=== PATIENT | female | born 1995 | race Caucasian/White ===

== ENCOUNTER 2019-07-15 16:26 | Emergency (ER) | payer BC, SELFPAY ==
--- NOTE | 2019-07-15 16:31 | XR_ITS ---
WS: [id number] XR nasal bones min 3V [id number] REASON FOR EXAM: injury FINDINGS: The left nasal bone shows a fracture with no depression. No gross displacement is seen. Spi ne at the tibia is normal. The paranasal sinuses show no air-fluid levels. The visualized facial bones and orbits were normal. XR/XR nasal bones min 3V [id number] IMPRESSION: Nondisplaced left nasal bone fracture.
[2019-07-15 16:33] VITALS: BP 145/91; PULSE 77; RESP 16; TEMP 36.4; O2SAT 100; BMI 28.3
[2019-07-15 17:19] VITALS: BP 120/78; PULSE 77; RESP 16; TEMP 36.6; O2SAT 99
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
[2019-07-15 18:35] VITALS: BP 107/74; PULSE 81; RESP 16; TEMP 36.6; O2SAT 97
--- NOTE | 2019-07-15 19:10 | PC.NURSE ---
Reviewed assessment and agree with it.
--- NOTE | 2019-07-18 09:34 | DCPLANNER ---
manager database was asked to schedule a follow up appointment for patient with ENT. manager database called the ENT clinic, spoke with Stacie, a follow up appointment was scheduled for Monday, July 22, 2019 at 2:[address] Amezcua. Clinic will call patient with appointment information.
--- NOTE | 2019-08-05 14:15 | DCPLANNER ---
Patient did not attend appointment scheduled for 07.22.19 with ENT.
== END 2019-07-15 19:10 | disposition home or self-care (01) ==
PROVIDERS: Emergency Provider Physician Assistant; Family Provider Family Medicine
DX: S02.2XXA Fracture of nasal bones, initial encounter for closed fracture (principal); F17.200 Nicotine dependence, unspecified, uncomplicated; W50.0XXA Accidental hit or strike by another person, initial encounter
CPT/HCPCS: 70160; 99281; 99282

== ENCOUNTER → 2020-05-06 10:41 | Outpatient (BNVA) | payer BC, SELFPAY | PROVIDERS: Family Provider Family Medicine; Visit Provider Nurse Practitioner Family | DX: J06.9 Acute upper respiratory infection, unspecified (principal) | CPT/HCPCS: 87635 ==

== ENCOUNTER 2020-06-23 13:01 | Outpatient (CLI) | payer MEDICAID, SELFPAY ==
--- NOTE | 2020-06-23 13:07 | US_ITS ---
WS: [id number] ULTRASOUND EARLY TECHNIQUE: Transabdominal sonography of the pelvis was performed. Followed by transvaginal sonography to better evaluate the uterus and ovaries. CLINICAL INFORMATION: SUPERVISION NORMAL LMP: 04/30/2020 Beta hCG: Unknown. COMPARISON: None. FINDINGS: UTERUS AND GESTATIONAL SAC Intrauterine gestations: Estimated gestational age: 6w1d Yolk sac: 0.5 cm. [place] rump length (CRL): 0.5 cm. heart motion: 112 BPM. Subchorionic hemorrhage: None. OVARIES Right ovary: Normal. Left ovary: Normal. FREE FLUID Trace US/US OB <=14 wk fetus w transvag IMPRESSION: 1. Single live intrauterine with cardiac activity. 2. Estimated gestational age; 6w1d 3. Normal adnexa. 4. Trace free fluid in the cul-de-sac.
== END 2020-06-23 13:02 | disposition home or self-care (01) ==
PROVIDERS: PCP Family Medicine; Visit Provider Family Medicine
DX: Z34.91 Encounter for supervision of normal pregnancy, unspecified, first trimester (principal); Z3A.01 Less than 8 weeks gestation of pregnancy
CPT/HCPCS: 76801; 76817

== ENCOUNTER 2020-07-02 16:39 | Emergency (ER) | payer MEDICAID, SELFPAY ==
[2020-07-02 16:52] VITALS: BP 141/80; PULSE 99; RESP 16; TEMP 36.8; O2SAT 98; BMI 29.6
--- NOTE | 2020-07-02 17:27 | ED_ITS ---
HPI - General: Chief complaint: Vaginal Bleeding Stated complaint: 7&1/2 WKS PREG, HEAVY SPOTTING Time Seen by Provider: 07/02/20 16:56 History of Present Illness: HPI Narrative: 24-year-old female presents complaining of cramping and a little bit of occasional bloody spotting. Its not continuous she has not had to wear a pad. She is approximately 7-1/2 weeks she usually sees Dr. Zambrano. Patient is G2, P1. She denies any fever sweats chills nausea vomiting or diarrhea. No vaginal discharge dysuria urgency or frequency. She does have a little bit of cramping. MD Complaint: vaginal bleeding Onset (ago): hour(s) Pain Consistency: intermittent Location: pelvis Severity: mild Quality: Cramping Radiation: pelvis Relieving factors: none Exacerbating factors: none Vaginal discharge: none Vaginal bleeding: light Date of Last Menstrual Period: 04/30/20 OB History - Current : no complications OB History - Previous Pregnancies: no complications care: followed by OB Associated symptoms: Reports vaginal bleeding; Deny abdominal pain, dyspareunia, dysuria, headache(s), malaise, nausea, rash, seizures, short of breath, syncope, vaginal discharge, visual changes, vomiting or weakness Related Data: : 2 Review of Systems Const: Denies: malaise ENMT: Denies: throat pain, ear or mastoid pain, nasal discharge or nasal congestion Card: Denies: syncope Resp: Denies: dyspnea, productive cough or non-productive cough GI: Denies: abdominal pain, nausea or vomiting : Denies: dysuria, vaginal discharge or dyspareunia Skin/Breast: Denies: rash or pruritus Neuro: Denies: headache(s) PFSH ED PFSH: Social History Smoking and tobacco status: current every day smoker Female Reproductive History: Date of last menstrual period: 04/30/20 : 2 Physical Exam Const: COMMON NORMALS: no acute distress GENERAL APPEARANCE: cooperative and comfortable ORIENTATION/CONSCIOUSNESS: Yes awake, Yes oriented to person, Yes oriented to place and Yes oriented to time HENMT: COMMON NORMALS: normocephalic, atraumatic and hearing grossly normal bilaterally HEAD & SCALP: normocephalic and atraumatic Neck/C-Spine: COMMON NORMALS: no JVD Resp: COMMON NORMALS: normal respiratory effort, No retractions, No use of accessory muscles and clear to auscultation bilaterally AUSCULTATION: clear to auscultation bilaterally Cardio: COMMON NORMALS: no JVD, regular rate, regular rhythm and No murmurs present (Cardio) RATE: regular rate RHYTHM: regular rhythm GI: COMMON NORMALS: Soft to palpation and No hepatosplenomegaly present AUSCULTATION: Yes normoactive bowel sounds PALPATION: Yes Soft to palpation, No Tenderness to palpation present (GI), No Guarding due to palpation present (GI) and Yes No hepatosplenomegaly present : SPECULUM EXAM - VAGINA: Yes vaginal bleeding OB/EXTERNAL & SPECULUM: vaginal bleeding Extremity: COMMON NORMALS: normal to inspection, capillary refill normal, no clubbing, cyanosis or edema, no calf tenderness and no pedal edema Neuro: SENSORIUM/ORIENTATION: Yes oriented to person, Yes oriented to place and Yes oriented to time Skin: COMMON NORMALS: no rashes or lesions noted GENERAL SKIN EXAM: no rashes or lesions noted Course Vital Signs: Vital signs: Vital Signs Temperature 98.3 F 07/02/20 16:52 Pulse Rate 98 07/02/20 18:48 Respiratory Rate 16 07/02/20 18:48 Blood Pressure 125/72 07/02/20 18:48 Pulse Oximetry 94 07/02/20 18:48 MDM - OB/Uterine Contractions MDM Narrative: Medical decision making narrative: Beta-hCG is adequate. On pe lvic exam I do not see any blood at the os or in the vaginal canal. Have her follow-up within the next few days if she has any worsening of symptoms return. She had no cervical motion tenderness or real pelvic discomfort. Suspect she may have had a small subchorionic bleed. Lab Data: Attestation: I reviewed the patient's lab results. Labs: Lab Results 07/02/20 07/02/20 07/02/20 Range/Units 17:17 17:31 17:31 WBC 13.0 H (4.0-10.0) 10^3/ uL RBC 4.79 (4.1-5.3) 10^6/u L Hgb 14.0 (11.5-15.3) g/dL Hct 41.5 (37.0-47.0) % MCV 86.6 (81-99) fL MCH 29.2 (28.0-34.0) pg MCHC 33.7 (30.0-36.0) g/dL RDW 12.0 L (12.1-15.1) % Plt Count 291 (130-400) 10^3/c mm MPV 10.1 (7.4-10.4) fL Neut % (Auto) 75.2 % Lymph % (Auto) 18.9 % [place] % (Auto) 4.6 % Eos % (Auto) 0.4 % Baso % (Auto) 0.4 % Neut # (Auto) 9.75 H (1.8-7.7) 10^3/u L Lymph # (Auto) 2.5 (0.8-4.8) 10^3/u L [place] # (Auto) 0.6 (0.2-0.9) 10^3/u L Eos # (Auto) 0.1 (0.0-0.8) 10^3/u L Baso # (Auto) 0.1 (0.0-0.1) 10^3/u L Nucleated RBC % (a uto) 0 % Nucleated RBCs # 0.0 /100WBC Sodium (136-145) mmol/L Potassium (3.5-5.1) mmol/L Chloride (98-107) mmol/L Carbon Dioxide (22-29) mmol/L Anion Gap (5-19) BUN (6-20) mg/dL Creatinine (0.5-0.9) mg/dL GFR Calculation (90-130) mL/min Glucose (65-115) mg/dL Calculated Osmolal ity (285-295) mOsm/k g Calcium (8.5-10.5) mg/dL Ser , Anastacia i-Qnt mIU/mL Urine Color Yellow (Yellow) Urine Appearance Clear (CLEAR) Urine pH 5 (5-7) Ur Specific Gravit y 1.015 (1.005-1.030) Urine Protein Neg (Negative) Urine Glucose (UA) Norm (Normal) Urine Ketones Negative (Negative) Urine Blood Trace H (Negative) Urine Nitrate Negative (Negative) Urine Bilirubin Neg (Negative) Urine Urobilinogen Norm (Negative) mg/dL Ur Leukocyte Oliva ase Negative (Negative) Urine RBC 0-4 H (0-2) /hpf Urine WBC None (0-5) /hpf Ur Squamous Epith Cells 0-4 H (0-5) /hpf Amorphous Sediment Not Reportable Urine Bacteria Trace (NONE) /hpf Blood Type A Positive Rho(D) Type Positive 07/02/20 Range/Units 17:31 WBC (4.0-10.0) 10^3/ uL RBC (4.1-5.3) 10^6/u L Hgb (11.5-15.3) g/dL Hct (37.0-47.0) % MCV (81-99) fL MCH (28.0-34.0) pg MCHC (30.0-36.0) g/dL RDW (12.1-15.1) % Plt Count (130-400) 10^3/c mm MPV (7.4-10.4) fL Neut % (Auto) % Lymph % (Auto) % [place] % (Auto) % Eos % (Auto) % Baso % (Auto) % Neut # (Auto) (1.8-7.7) 10^3/u L Lymph # (Auto) (0.8-4.8) 10^3/u L [place] # (Auto) (0.2-0.9) 10^3/u L Eos # (Auto) (0.0-0.8) 10^3/u L Baso # (Auto) (0.0-0.1) 10^3/u L Nucleated RBC % (a uto) % Nucleated RBCs # /100WBC Sodium 138 (136-145) mmol/L Potassium 3.9 (3.5-5.1) mmol/L Chloride 105 (98-107) mmol/L Carbon Dioxide 20 L (22-29) mmol/L Anion Gap 16.9 (5-19) BUN 5 L (6-20) mg/dL Creatinine 0.4 L (0.5-0.9) mg/dL GFR Calculation 199.6 H (90-130) mL/min Glucose 75 (65-115) mg/dL Calculated Osmolal ity 282 L (285-295) mOsm/k g Calcium 9.3 (8.5-10.5) mg/dL Ser , Anastacia i-Qnt 554657.00 mIU/mL Urine Color (Yellow) Urine Appearance (CLEAR) Urine pH (5-7) Ur Specific Gravit y (1.005-1.030) Urine Protein (Negative) Urine Glucose (UA) (Normal) Urine Ketones (Negative) Urine Blood (Negative) Urine Nitrate (Negative) Urine Bilirubin (Negative) Urine Urobilinogen (Negative) mg/dL Ur Leukocyte Oliva ase (Negative) Urine RBC (0-2) /hpf Urine WBC (0-5) /hpf Ur Squamous Epith Cells (0-5) /hpf Amorphous Sediment Urine Bacteria (NONE) /hpf Blood Type Rho(D) Type Discharge Plan Discharge Patient Disposition: Home Clinical Impression: Vaginal bleeding Condition: Stable Discharge Orders: Discharge ED (Routine); Ordered 07/02/20 Ordered By: Zain Cobb Referrals: Mainor Zambrano MD [Primary Care Provider] - Discharge Diet: Usual diet Activity Restrictions/Additional Instructions: Return if you have further problems. Or worsening symptoms. Coding Level of Care Code ED Inletter for Crissyg Fwd Exam Comprehensive
[2020-07-02 17:57] LABS: Basophils # 0.1 10^3/uL (0.0-0.1); Basophils % 0.4 %; Eosinophils # 0.1 10^3/uL (0.0-0.8); Eosinophils % 0.4 %; Hematocrit 41.5 % (37.0-47.0); Lymphocytes # 2.5 10^3/uL (0.8-4.8); Lymphocytes % 18.9 %; Mean Corpuscular HGB Conc 33.7 g/dL (30.0-36.0); Mean Corpuscular Hemoglobin 29.2 pg (28.0-34.0); Mean Corpuscular Volume 86.6 fL (81-99); Mean Platelet Volume 10.1 fL (7.4-10.4); Monocytes # 0.6 10^3/uL (0.2-0.9); Monocytes % 4.6 %; Neutrophils # 9.75 10^3/uL (1.8-7.7); Neutrophils % 75.2 %; Nucleated Red Blood Cells % 0 %; Platelet Count 291 10^3/cmm (130-400); Red Blood Count 4.79 10^6/uL (4.1-5.3)
[2020-07-02 18:13] LABS: Add Urine Microscopic? YES; Bilirubin Urine Neg (Negative); Blood Urine Trace (Negative); Glucose Urine UA Norm (Normal); Ketones Urine Negative (Negative); Leukocyte Esterase Urine Negative (Negative); Nitrate Urine Negative (Negative); Protein Urine Neg (Negative); Specific Gravity, Urine 1.015 (1.005-1.030); Urine Appearance Clear (CLEAR); Urine Color Yellow (Yellow); Urobilinogen Urine Norm (Negative); pH Urine 5 (5-7)
[2020-07-02 18:14] LABS: Add Urine Culture? No; Bacteria Urine TRACE /hpf; RBC Urine 0-4 /hpf (0-2); Squamous Epithelial Cell Urine 0-4 /hpf (0-5)
[2020-07-02 18:33] LABS: Anion Gap 16.9 (5-19); Blood Urea Nitrogen 5 mg/dL (6-20); Calcium 9.3 mg/dL (8.5-10.5); Carbon Dioxide 20 mmol/L (22-29); Chloride 105 mmol/L (98-107); Glomerular Filtration Rate 199.6 mL/min (90-130); Glucose 75 mg/dL (65-115); Osmolality Calculated 282 mOsm/kg (285-295); Potassium 3.9 mmol/L (3.5-5.1); Sodium 138 mmol/L (136-145)
[2020-07-02 18:48] VITALS: BP 125/72; PULSE 98; RESP 16; O2SAT 94
== END 2020-07-02 18:48 | disposition home or self-care (01) ==
PROVIDERS: Emergency Provider Family Medicine; PCP Family Medicine
DX: N93.9 Abnormal uterine and vaginal bleeding, unspecified (principal); F17.210 Nicotine dependence, cigarettes, uncomplicated
CPT/HCPCS: 12345; 51701; 80048; 81001; 84702; 85025; 86900; 87210; 87491; 87591; 87661; 99282; 99283; E0352

== ENCOUNTER 2020-09-22 13:53 | Outpatient (CLI) | payer MEDICAID, SELFPAY ==
--- NOTE | 2020-09-22 14:03 | US_ITS ---
WS: [id number] OBSTETRICAL ULTRASOUND COMPLETE HISTORY: SUPERVISION, NORMAL COMPARISON: 06/23/2020 Single intrauterine gestation in variable presentation. Cervix is Closed and normal length. Cervical length is 3.9 cm. Normal amount of amniotic fluid surrounds the fetus. Placenta: Anterior, no previa or abruption. Tip ends 2.7 cm above the internal cervical os. Placenta grade 0 Heart: 171 BPM. Four chambers are identified. Outflow tracts are poorly visualized but no abnormality is identified. Poor visualization due to body habitus. Anatomy: Intracranial structures and spine are normal. kidneys, stomach and urinary bladd er are unremarkable. Abdominal wall, three-vessel cord and cord insertion site are normal. 4 extremities are present. profile: Limited by hands in front of the face. Gender: Female. measurements: BPD = 4.4 cm = 19w2d HC = 16.4 cm = 19w1d AC = 15.4 cm = 20w4d FL = 3.3 cm = 20w3d EFW: 347 g. Biometry is internally concordant. AGA by ultrasound: 19w6d NAVID by ultrasound: 02/10/2021 US/US OB >= 14 weeks fetus [id number] IMPRESSION: 1. Single intrauterine gestation of 19w6d with an NAVID of 02/10/2021. Appropria te growth since the first trimester ultrasound. 2. Unremarkable screening survey of anatomy.
== END 2020-09-22 13:54 | disposition home or self-care (01) ==
LOC: RAD 13:56
PROVIDERS: PCP Family Medicine; Visit Provider Family Medicine
DX: Z34.92 Encounter for supervision of normal pregnancy, unspecified, second trimester (principal); Z3A.19 19 weeks gestation of pregnancy
CPT/HCPCS: 76805

== ENCOUNTER 2021-02-05 20:26 | Outpatient (CLI) | payer OTHER, MEDICAID, SELFPAY ==
[2021-02-05] VITALS (9 sets, daily range): BP systolic 121–140; BP diastolic 69–92; PULSE 82–115; RESP 16; TEMP 36.9; BMI 33.6
[2021-02-05 21:35] LABS: Basophils % 0.4 %; Eosinophils # 0.1 10^3/uL (0.0-0.8); Eosinophils % 0.7 %; Hematocrit 36.6 % (37.0-47.0); Hemoglobin 12.5 g/dL (11.5-15.3); Lymphocytes # 2.6 10^3/uL (0.8-4.8); Lymphocytes % 23.1 %; Mean Corpuscular HGB Conc 34.2 g/dL (30.0-36.0); Mean Platelet Volume 10.7 fL (7.4-10.4); Monocytes # 0.5 10^3/uL (0.2-0.9); Monocytes % 4.5 %; Neutrophils # 7.89 10^3/uL (1.8-7.7); Neutrophils % 70.1 %; Nucleated Red Blood Cells % 0 %; Platelet Count 206 10^3/cmm (130-400); Red Blood Count 4.16 10^6/uL (4.1-5.3); Red Cell Distribution Width 13.7 % (12.1-15.1); White Blood Count 11.3 10^3/uL (4.0-10.0)
[2021-02-05 21:37] LABS: Add Urine Microscopic? YES; Bilirubin Urine Neg (Negative); Blood Urine Neg (Negative); Glucose Urine UA Norm (Normal); Ketones Urine Negative (Negative); Leukocyte Esterase Urine 2+ (Negative); Nitrate Urine Negative (Negative); Protein Urine Neg (Negative); Urine Color Yellow (Yellow); Urobilinogen Urine Norm (Negative); pH Urine 6.5 (5-7)
[2021-02-05 21:55] LABS: Alanine Aminotransferase 6 U/L (0-33); Albumin Level 3.4 g/dL (3.5-5.2); Alkaline Phosphatase 655 IU/L (35-105); Anion Gap 19.8 (5-19); Aspartate Amino Transferase 16 U/L (0-32); Blood Urea Nitrogen 6 mg/dL (6-20); Calcium 8.8 mg/dL (8.5-10.5); Carbon Dioxide 17 mmol/L (22-29); Chloride 106 mmol/L (98-107); Globulin 2.9 g/dL (1.3-4.6); Glomerular Filtration Rate 197.8 mL/min (90-130); Glucose 86 mg/dL (65-115); Osmolality Calculated 285 mOsm/kg (285-295); Potassium 3.8 mmol/L (3.5-5.1); Sodium 139 mmol/L (136-145); Total Bilirubin 0.2 mg/dL (0.15-1.2); Total Protein 6.3 g/dL (6.6-8.7); Uric Acid 4.9 mg/dL (2.4-5.7)
[2021-02-05 21:56] LABS: Urine Creatinine 72 mg/dL (28-217)
[2021-02-05 21:57] LABS: UPRO/UCREAT Ratio 0.35 mg/mg CR; Urine Protein Random 25 mg/dL
[2021-02-05 22:00] LABS: RBC Urine 0-4 /hpf (0-2)
[2021-02-05 22:01] LABS: Add Urine Culture? No; Bacteria Urine 2+ /hpf; Squamous Epithelial Cell Urine 25-40 /hpf (0-5); WBC Urine 15-25 /hpf (0-5)
== END 2021-02-05 22:40 | disposition home or self-care (01) ==
LOC: OPOB 20:37 → OBGYN 22:21
PROVIDERS: PCP Family Medicine; Visit Provider Family Medicine
DX: O16.9 Unspecified maternal hypertension, unspecified trimester (principal); Z3A.00 Weeks of gestation of pregnancy not specified
CPT/HCPCS: 36415; 59025; 80053; 81001; 82570; 84156; 84550; 85025; 99211

== ENCOUNTER 2021-02-07 08:08 | Outpatient (CLI) | payer OTHER, MEDICAID, SELFPAY ==
[2021-02-07 09:13] LABS: Total Volume, Urine 2900 mL
[2021-02-07 09:30] LABS: Urine Total Protein 9.4 mg/24HR (0-150); Urine Total Protein 24 Hour 272.6 mg/dL (0-150)
== END 2021-02-07 08:09 | disposition home or self-care (01) ==
PROVIDERS: PCP Family Medicine; Visit Provider Family Medicine
DX: Z01.89 Encounter for other specified special examinations (principal)
CPT/HCPCS: 84156

== ENCOUNTER 2021-02-08 05:05 | Inpatient (IN) | payer OTHER, MEDICAID, SELFPAY ==
[2021-02-08] VITALS (24 sets, daily range): BP systolic 112–136; BP diastolic 64–86; PULSE 15–98; RESP 12–18; TEMP 36.3–37; O2SAT 97–99; BMI 33.8
[2021-02-08] MEDS: lactated ringers 1,000 ML 125 ML IV (05:31)
[2021-02-08 05:36] LABS: Basophils # 0.1 10^3/uL (0.0-0.1); Basophils % 0.5 %; Eosinophils # 0.1 10^3/uL (0.0-0.8); Eosinophils % 0.6 %; Hematocrit 36.8 % (37.0-47.0); Hemoglobin 12.5 g/dL (11.5-15.3); Lymphocytes # 3.4 10^3/uL (0.8-4.8); Mean Corpuscular Hemoglobin 29.9 pg (28.0-34.0); Mean Platelet Volume 11.1 fL (7.4-10.4); Monocytes # 0.6 10^3/uL (0.2-0.9); Monocytes % 4.4 %; Neutrophils # 8.37 10^3/uL (1.8-7.7); Neutrophils % 66.2 %; Nucleated Red Blood Cells % 0 %; Platelet Count 208 10^3/cmm (130-400); Red Blood Count 4.18 10^6/uL (4.1-5.3); Red Cell Distribution Width 13.7 % (12.1-15.1); White Blood Count 12.7 10^3/uL (4.0-10.0)
[2021-02-08 06:04] LABS: Amphetamines Screen Urine Negative (Negative); Barbiturates Screen Urine Negative (Negative); Benzodiazepines Screen Urine Negative (Negative); Cocaine Screen Urine Negative (Negative); Opiate Screen Urine Negative (Negative); PCP Screen Urine Negative (Negative); THC Screen Urine Negative (Negative)
[2021-02-08] MEDS: lactated ringers 1,000 ML 999 ML IV (06:40)
--- NOTE | 2021-02-08 06:44 | P.ANESASSM_ITS ---
Documented by User: Jolynn Lopez CRNA 02/08/21 06:46 Pre-Anesthetic Assessment Pre-Anesthetic Assessment: Height/Weight: Height 1.57 m Weight 83.915 kg Resp 15 02/08/21 05:11 Preop Diagnosis: previous c/s Proposed Procedure: Operation Date: 02/08/21 07:00 Proposed Procedures p Section Repeat(Not Applicable) - Mainor Zambrano MD Last intake: Intake Last Liquid Date 02/08/21 Last Liquid Time 00:00 Last Solid Date 02/07/21 Last Solid Time 19:00 Social: Social History: Tobacco Exam: Pre-Anes Outpt Exam: alert and oriented x 3 Airway: Submandibular: WNL Cervical ROM: WNL MP: 2 Dentition: Full History/ROS: No significant history except as noted Pulmonary: Pulmonary: None reported CV/HEM: CV/HEM: None reported : : None reported Hepatic: Hepatic: None reported GI: GI: None reported Metabolic: Metabolic: None reported Musc/skel: Musc/skel: None reported Neuropsych: Neuropsych: None reported Anesthetic Plan: ASA status: 2 Anesthesia: Eval. for regional block Other: SAB Risk of > 500 ml blood loss (7ml/kg in children): No Meds/Allergies Current Medications: Current Medications Generic Name Dose Route Start Last Admin Trade Name Freq PRN Reason Stop Dose Admin Lactated Ringer's 1,000 mls @ 125 m ls/hr 02/08/21 05:15 02/08/21 05:31 Lactated Ringers IV 125 mls/hr .Q8H CLAUDIA Administration Lactated Ringer's 1,000 mls @ 999 m ls/hr 02/08/21 06:32 02/08/21 06:40 Lactated Ringers IV 02/08/21 07:32 999 mls/hr .Q1H1M ONE Administration PFSH Anesthesia PFSH: Surgical History (Updated 02/08/21 @ 06:57 by Mainor Zambrano MD) Previous section Social History Smoking and tobacco status: current every day smoker Female Reproductive History: Date of last menstrual period: 04/30/20 Gravid a: 2 Data Anesthesia CBC & Chem 7: 02/08/21 05:20 Other Labs: Laboratory Results - last 48 hr 02/08/21 02/08/21 05:19 05:20 WBC 12.7 H RBC 4.18 Hgb 12.5 Hct 36.8 L MCV 88.0 MCH 29.9 MCHC 34.0 RDW 13.7 Plt Count 208 MPV 11.1 H Neut % (Auto) 66.2 Lymph % (Auto) 27.0 Keith % (Auto) 4.4 Eos % (Auto) 0.6 Baso % (Auto) 0.5 Neut # (Auto) 8.37 H Lymph # (Auto) 3.4 Keith # (Auto) 0.6 Eos # (Auto) 0.1 Baso # (Auto) 0.1 Nucleated RBC % (auto) 0 Nucleated RBCs # 0.0 Urine Opiates Screen Negative Ur Barbiturates Screen Negative Ur Phencyclidine Scrn Negative Ur Amphetamines Screen Negative U Benzodiazepines Scrn Negative Urine Cocaine Screen Negative U Marijuana (THC) Screen Negative Cardiac Studies: No Data to Display Documented by User: Owen Enriquez 02/08/21 11:58 PFSH Anesthesia PFSH: Surgical History (Updated 02/08/21 @ 06:57 by Mainor Zambrano MD) Previous section Social History Smoking and tobacco status: current every day smoker Data Anesthesia CBC & Chem 7: 02/08/21 05:20 Cardiac Studies: No Data to Display
[2021-02-08] MEDS: metoclopramide 5 mg/mL SDV 2 mL 10 MG IVP (06:45)
[2021-02-08] MEDS: famotidine 20 mg/2 mL INJ IVP (06:45)
[2021-02-08] MEDS: citric acid-sodium citrate 30 mL UDC PO (06:46)
--- NOTE | 2021-02-08 06:55 | P.HP_ITS ---
Providers/Chief Complaint Admitting Physician: Mainor Zambrano MD Primary Care Provider: Mainor Zambrano MD Chief Complaint: c section History of Present Illness Irene Hurtado is a 25 year old at 39.0 weeks gestation by 6-week ultrasound inconsistent with LMP. 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 The patient presents for a scheduled repeat low-transverse section. The patient is feeling well at this time. She denies any chest pains, shortness of breath, nausea, vomiting, fever, leakage of fluid, vaginal bleeding. She feels well overall at this time. She last ate prior to midnight last night. Medications/Allergies Home Medications Medication Instructions Recorded Confirmed Last Taken Type 1 tab PO DAILY 02/05/21 02/05/21 Unknown History iron 325 mg PO DAILY 02/05/21 02/05/21 02/05/21 12:00 History Allergies Allergy/AdvReac Type Severity Reaction Status Date / Time Penicillins Allergy Unknown Verified 02/05/21 21:32 PFSH Acute PFSH: Surgical History (Updated 02/08/21 @ 06:57 by Manior Zambrano MD) Previous section Social History Smoking and tobacco status: current every day smoker Female Reproductive History: Date of last menstrual period: 04/30/20 Gravi da: 2 Vitals/I&O/Wt Last Vital Signs Pulse 15 L 02/08/21 05:11 Resp 15 02/08/21 05:11 02/07/21 02/07/21 02/08/21 14:59 22:59 06:59 Intake Total 50 / 50 Balance 50 / 50 Weight last 48 hrs Weight 185 lb Physical Exam Narrative: EXAM NARRATIVE: General: Alert and oriented x3 Eyes: Pupils equal round and reactive to light and accommodation Mouth: Mucous membranes moist, pharynx non-erythematous Cardiac: Regular rate and rhythm without murmurs Lungs: Clear to auscultation bilaterally without wheezes, crackles or rhonchi Abdomen: Soft, non-tender, fundus consistent with gestational age Extremities: Trace edema in the bilateral lower extremities Data : 02/08/21 05:20 A&P Additional A&P Information The patient is doing well at this time and we will plan to proceed with a repeat low transverse section. heart tones are in the mid 130s with moderate variability and good accelerations with a category 1 tracing. Contractions are every 1 to 3 minutes. All questions were answered. Attestations Medical Necessity Statement*: The patient will be here for greater than 2 midnights due to routine intrapartum and management of section. Coding Level of Care Code Acute Enterprise Mobility Architect for Dania Bell
--- NOTE | 2021-02-08 09:09 | PM.OP ---
Operative Report Date of procedure: February 08, 2021 Pre-op Diagnosis: previous c/s Pre-op Diagnosis: 1. Intrauterine at 39.0 weeks gestation 2. THC in initial urine in first trimester 3. Rubella nonimmune Post-op Diagnosis: 1. Intrauterine status post repeat low transverse section at 39.0 weeks gestation 2. THC in initial urine in first trimester 3. Rubella nonimmune 4. Delivery of healthy infant male weighing 7 pounds 13 ounces with Apgars of 8 and 9 Procedure Done: Repeat low-transverse section. Specimens removed/disposition: Placenta discarded Pathology: none sent Surgeon: Mainor Zambrano Anesthesia: Other (Spinal) Estimated blood loss (mL): 650 Complications: None Condition: stable Disposition: floor Brief History: Irene Hurtado is a 25 year old G2 now P2 status post repeat low transverse section at 39.0 weeks gestation by 6-week ultrasound inconsistent with LMP. 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 The patient presents for a scheduled repeat low-transverse section. The patient is feeling well at this time. She denies any chest pains, shortness of breath, nausea, vomiting, fever, leakage of fluid, vaginal bleeding. She feels well overall at this time. She last ate prior to midnight last night. Procedure: After informed consent was obtained, the patient was taken to the operating room and the patient was prepped and draped in a normal sterile fashion in the dorsal supine position. A spinal epidural was placed and adequate anesthesia was confirmed. At 7:21 AM on 02/08/2021, a Pfannenstiel skin incision was made and carried through to the underlying layer of fascia using a scalpel. The fascial incision was then extended laterally using curved Mayos. The fascia was then grasped with Kevin clamps and the underlying rectus muscles were dissected off taking care to avoid injury to the underlying tissues. The peritoneum was entered bluntly with one digit. It was then bluntly. The vesicouterine peritoneum was covering the incision site, so this was dissected bluntly and held out of the way with the bladder blade. The uterine incision was made in the lower uterine segment in a transverse fashion with the scalpel at 7:27 AM. The amniotic membrane was entered bluntly and a small amount of clear fluid was noted. The infant's head delivered atraumatically with steady pressure at 7:30 AM. There was no nuchal cord. The mouth and nose were suctioned. The rest of the infant delivered without difficulty. The was crying immediately upon delivery. The cord was clamped and cut and the infant was handed to the awaiting pediatric nurses. The placenta was then manually expressed. The uterus was then exteriorized from the abdomen and a wet lap was used to clear the uterus of clots and debris. The bladder blade was reinserted and the uterine incision was closed using 0 chromic in a running locking fashion. A second layer of the same suture was used in the same manner. An area on the left incisional edge was bleeding, so a suture using 0 chromic was used to obtain hemostasis. Excellent hemostasis was obtained. Next the posterior cul-de-sac was inspected and was cleared of any blood. The uterus was then placed back into the abdomen. The gutters were cleared of any further clots and debris and the uterine incision was again inspected and hemostasis was noted. The subfascial tissue was inspected for hemostasis and the peritoneum was re-approximated using 2-0 plain in a running fashion. A defect was noted centrally in the fascia and this was closed using 0 Vicryl in a running fashion. The incision in the fascia was then re-approximated using 0 Vicryl in a running fashion. The subcutaneous tissue was inspected for hemostasis. Porter's fascia was then re-approximated using 3-0 plain in a running fashion. Good hemostasis was noted. The subcutaneous tissue was then re-approximated using a subcuticular stitch. The patient tolerated the procedure well and was recovered in stable condition. Estimated blood loss was 650 mL. Urine in the Taylor catheter was clear. The patient was taken to recovery in good condition.
[2021-02-08] MEDS: diphenhydrAMINE 50 mg/mL SDV 1mL 25 MG IVP ×2 (10:05→23:36)
[2021-02-08] MEDS: dextrose 5%-lactated ringers 1,000 ML 125 ML IV ×2 (11:08→20:17)
--- NOTE | 2021-02-08 11:58 | ANE.PACU2 ---
Inpatient post-anesthesia follow up: Airway intact: Yes Vital signs: Temperature Pulse Rate 15 Respiratory Rate 15 Blood Pressure Pulse Oximetry Oxygen Delivery Me thod Room Air Oxygen Flow Rate Fraction of Inspir ed Oxygen Hydration adequate: Yes Nausea and vomiting: No Pain level: 2 Mental status: Baseline
[2021-02-08] MEDS: ketorolac 30 mg/mL INJ IVP ×2 (14:27→20:17)
[2021-02-08] MEDS: sodium chloride 0.9% 500 ML 999 ML IV (15:00)
[2021-02-08 21:53] LABS: Hematocrit 29.2 % (37.0-47.0); Hemoglobin 9.9 g/dL (11.5-15.3); Mean Corpuscular HGB Conc 33.9 g/dL (30.0-36.0); Mean Corpuscular Hemoglobin 30.4 pg (28.0-34.0); Mean Corpuscular Volume 89.6 fl (81-99); Mean Platelet Volume 10.5 fL (7.4-10.4); Platelet Count 148 10^3/cmm (130-400); Red Blood Count 3.26 10^6/uL (4.1-5.3); Red Cell Distribution Width 13.7 % (12.1-15.1)
[2021-02-09 03:55] VITALS: RESP 16
[2021-02-09] MEDS: oxyCODONE-APAP 5-325 mg Tablet PO ×2 (03:55→09:13)
[2021-02-09 09:13] VITALS: RESP 17
[2021-02-09] MEDS: prenatal vitamin Capsule 1 CAP PO (09:13)
[2021-02-09] MEDS: docusate sodium 100 mg Capsule PO (09:13)
--- NOTE | 2021-02-09 09:30 | P.DS_ITS ---
Discharge Providers Date of Admission: 02/08/21 05:05 Date of Discharge: February 09, 2021 Attending Provider at Admission: Mainor Zambrano MD Attending Provider at Discharge: Mainor Zambrano MD Primary Care Provider: Mainor Zambrano MD Diagnoses at Discharge Other Information Additional DC diagnoses/information: 1. Intrauterine status post repeat low transverse section at 39.0 weeks gestation 2. THC in initial urine in first trimester 3. Rubella non-immune 4. Delivery of healthy male weighing 7 pounds 13 ounces with Apgars of 8 and 9 Reason for Visit Reason for Visit: c section Hospital Course Hospital Course Irene Hurtado is a 25 year old G2 now P2 status post repeat low transverse section at 39.0 weeks gestation by 6-week ultrasound inconsistent with LMP. 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 The patient presented for a scheduled repeat low-transverse section on 02/08/2021. The surgery was uncomplicated. She delivered a healthy male weighing 7 pounds 13 ounces. Her urine output was slow approximately 4 to 5 hours after delivery initially, however it improved after a fluid bolus. Her urine output has continued to do well. She is ambulating, voiding, passing gas and tolerating food by mouth. Her pain has been well controlled. She is showing no signs of complications from the surgery at this time. She does have some swelling present likely secondary to the fluid bolus. Compression hose were recommended. Routine post instructions were discussed. The patient and her significant other request for discharge home this afternoon. She is doing well and I feel that this is reasonable. All questions were answer ed. We will plan for discharge home this afternoon as long as she continues to do well. Physical Exam Narrative: EXAM NARRATIVE: General: Alert and oriented x3 Cardiac: Regular rate and rhythm without murmurs Lungs: Clear to auscultation bilaterally without wheezes, crackles or rhonchi Abdomen: Soft, mild to moderate tenderness over the uterus. Uterus is firm and 2 cm below the umbilicus. Incision is clean and dry without signs of infection or dehiscence. There is some edema noted in the abdomen wall in general. Extremities: +1 pitting edema in the bilateral lower extremities, trace edema in the bilateral upper extremities. Urinary Catheter Management^: Taylor Latex: Cath Placed During This Visit: yes, but has since been removed by the nurse Reason for Continuing Indwelling Catheter: Decision to DC Catheter Urinary Catheter Date of Insertion: 02/08/21 Urinary Catheter Time of Insertion: 07:10 Date Urinary Catheter Removed: 02/08/21 Time Urinary Catheter Discontinued: 21:45 Discharge Data Data Completed and Pending: Labs from last 24 hours 02/08/21 21:35 WBC 12.0 H RBC 3.26 L Hgb 9.9 L Hct 29.2 L MCV 89.6 MCH 30.4 MCHC 33.9 RDW 13.7 Plt Count 148 MPV 10.5 H Vitals: Last Vital Signs Temp 98.3 F 02/08/21 21:49 Pulse 76 02/08/21 21:49 Resp 17 02/09/21 09:13 BP 129/68 02/08/21 21:49 Pulse Ox 98 02/08/21 21:49 Discharge Plan Discharge Patient Disposition: Home Condition: Good Prescriptions: New oxycodone-acetaminophen 5-325 mg Tablet 1 tab PO Q6H PRN (Reason: Moderate To Severe Pain) Qty: 20 RF: 0 ibuprofen 800 mg Tablet 800 mg PO TID Qty: 60 RF: 0 Continued 1 tab PO DAILY RF: 0 Changed iron 325 mg (65 mg iron) Tablet 325 mg PO BIDWM Qty: 30 RF: 0 Discharge Orders: Discharge Order (Routine); Ordered 02/09/21 Ordered By: Mainor Zambrano Referrals: Mainor Zambrano MD [Primary Care Provider] - 2 weeks (Follow-up with Dr. Zambrano at 2 weeks and 6 weeks or sooner if needed.) Discharge Diet: Regular Discharge Activity: Limit activity as instructed Patient Instructions: Opioid Safety Activity Restrictions/Additional Instructions: If you have any concern for infection in your incision site, please seek immediate medical attention. Nothing per vagina for 6 weeks. Do not lift anything heavier than your in the car seat for the first 3 weeks, then gradually increase. Discharge Attestations Time Spent in Discharge Care*: greater than 30 min Quality Metrics Clinical Quality Measures During this hospital stay, did patient experience: None Coding Level of Care Code Acute Chg FW DC note
[2021-02-09 11:30] VITALS: BP 107/72; PULSE 96; RESP 15; TEMP 36.9; O2SAT 96
[2021-02-09 13:30] VITALS: BP 126/78; PULSE 102; RESP 16; TEMP 36.8; O2SAT 98
--- NOTE | 2021-02-11 16:42 | PC.RESP ---
SMOKING CESSATION INFORMATION SENT TO PATIENT.
== END 2021-02-09 14:22 | disposition home or self-care (01) | DRG 787 ==
PROVIDERS: Admitting Provider Family Medicine; PCP Family Medicine; Visit Provider Family Medicine
PROC: 10D00Z1 Extraction of Products of Conception, Low, Open Approach (ICD-10-PCS; CPT 59514; principal; 2021-02-08 07:00)
DX: O34.211 Maternal care for low transverse scar from previous cesarean delivery (principal); O99.324 Drug use complicating childbirth; F12.90 Cannabis use, unspecified, uncomplicated; O77.9 Labor and delivery complicated by fetal stress, unspecified; Z3A.39 39 weeks gestation of pregnancy; O73.0 Retained placenta without hemorrhage; Z37.0 Single live birth; Z20.822 Contact with and (suspected) exposure to COVID-19
CPT/HCPCS: 36415; 51702; 59025; 59409; 80306; 85025; 85027; 96374; 96376; J0690; J1200; J1885; J2274; J2405; J2765; J3490; J7030; J7040

== ENCOUNTER 2022-10-16 13:26 | Emergency (ER) | payer OTHER, MEDICAID, SELFPAY ==
[2022-10-16 13:29] VITALS: BP 138/82; PULSE 87; RESP 16; TEMP 37.1; O2SAT 100; BMI 29.6
--- NOTE | 2022-10-16 13:36 | ECG_ITS ---
[facility] Test Date: 2022-10-16 Pat Name: Irene Hurtado Department: Room: Gender: Female [employer]: : 1995 Requested By: Zain Light Order Number: [id number] Jan MD: Ketan Nicole M.D. Measurements Intervals [place] Rate: 75 P: 18 PA: 147 QRS: 7 QRSD: 86 T: 4 QT: 351 QTc: 394 Interpretive Statements SINUS RHYTHM POSSIBLE RIGHT VENTRICULAR CONDUCTION DELAY [RSR (QR) IN V1/V2] No previous ECG available for comparison Electronically Signed On 10-16-2022 16:27:26 CDT by Ketan Nicole M.D. [id number]
[2022-10-16 15:19] LABS: Basophils # 0.1 10^3/uL (0.0-0.1); Basophils % 0.6 %; Eosinophils # 0.1 10^3/uL (0.0-0.8); Eosinophils % 0.6 %; Hematocrit 43.7 % (37.0-47.0); Hemoglobin 14.1 g/dL (11.5-15.3); Lymphocytes # 2.9 10^3/uL (0.8-4.8); Lymphocytes % 29.2 %; Mean Corpuscular HGB Conc 32.3 g/dL (30.0-36.0); Mean Corpuscular Volume 86.9 fl (81-99); Mean Platelet Volume 10.3 fL (7.4-10.4); Monocytes # 0.4 10^3/uL (0.2-0.9); Monocytes % 4.3 %; Neutrophils # 6.38 10^3/uL (1.8-7.7); Neutrophils % 64.9 %; Nucleated Red Blood Cells % 0 %; Platelet Count 282 10^3/cmm (130-400); Red Blood Count 5.03 10^6/uL (4.1-5.3); Red Cell Distribution Width 12.9 % (12.1-15.1); White Blood Count 9.8 10^3/uL (4.0-10.0)
[2022-10-16 15:52] LABS: Alanine Aminotransferase 15 U/L (0-33); Albumin Level 4.8 g/dL (3.5-5.2); Alkaline Phosphatase 82 U/L (35-105); Anion Gap 16.6 (5-19); Aspartate Amino Transferase 20 U/L (0-32); Blood Urea Nitrogen 10 mg/dL (6-20); Calcium 9.6 mg/dL (8.5-10.5); Carbon Dioxide 25 mmol/L (22-29); Chloride 102 mmol/L (98-107); Globulin 3.1 g/dL (1.3-4.6); Glomerular Filtration Rate 102.8 mL/min (90-130); Glucose 84 mg/dL (65-115); Osmolality Calculated 288 mOsm/kg (285-295); Potassium 3.6 mmol/L (3.5-5.1); Sodium 140 mmol/L (136-145); Thyroid Stimulating Hormone 1.58 uIU/mL (0.27-4.20); Total Bilirubin 0.2 mg/dL (0.15-1.2); Total Protein 7.9 g/dL (6.6-8.7)
== END 2022-10-16 16:29 | disposition left against medical advice (07) ==
PROVIDERS: Physician Assistant; Emergency Provider Family Medicine; PCP Family Medicine
DX: Z53.21 Procedure and treatment not carried out due to patient leaving prior to being seen by health care provider (principal)
CPT/HCPCS: 36415; 80053; 84443; 85025; 93005

== ENCOUNTER 2023-02-09 10:50 | Outpatient (CLI) | payer OTHER, MEDICAID, SELFPAY ==
--- NOTE | 2023-02-09 11:28 | US_ITS ---
WS: [id number] ULTRASOUND LEFT BREAST HISTORY: LUMP IN LT BR COMPARISON: None available. TECHNIQUE: 2-D and Doppler. Ultrasound is directed to the palpable area in the LEFT breast at 9:00. No mass or distortion. No cys tic changes or duct dilatation IMPRESSION: US/US breast LT limited* [id number] BI-RADS: 1-Negative FOLLOW-UP: See Report No abnormalities identified in the LEFT breast at the palpable abnormality.
== END 2023-02-09 10:51 | disposition home or self-care (01) ==
PROVIDERS: PCP Family Medicine; Visit Provider Family Medicine
DX: N63.25 Unspecified lump in the left breast, overlapping quadrants (principal)
CPT/HCPCS: 76642

== ENCOUNTER → 2025-03-02 08:02 | Outpatient (BNVA) | payer MEDICAID, SELFPAY | PROVIDERS: PCP Family Medicine; Visit Provider Family Medicine Adult Medicine | DX: J02.9 Acute pharyngitis, unspecified (principal) | CPT/HCPCS: 87071; 87880 ==